=== PATIENT | female | born 1990 | race Caucasian/White ===

== ENCOUNTER 2022-03-12 08:02 | Day surgery (SDC) | payer SELFPAY ==
[2022-03-12] MEDS ORDERED: Dextrose 5%-Lactated Ringers 1,000 ML IV SCH (09:00)
[2022-03-12] MEDS ORDERED: fentaNYL 100 MCG/2 ML SDV ONE (09:39)
[2022-03-12] MEDS ORDERED: Propofol 200 MG/20 ML SDV ONE (09:39)
[2022-03-12] MEDS ORDERED: Midazolam 1 MG/ML 2 ML SDV ONE (09:39)
[2022-03-12 11:56] VITALS: BP 103/76; PULSE 71
== END 2022-03-12 11:56 | disposition home or self-care (01) ==
LOC: JP.SDS 08:02
PROVIDERS: ATTEND Surgery
DX: K29.70 Gastritis, unspecified, without bleeding (principal); K44.9 Diaphragmatic hernia without obstruction or gangrene; Z87.19 Personal history of other diseases of the digestive system; Z79.899 Other long term (current) drug therapy; Z79.83 Long term (current) use of bisphosphonates
CPT/HCPCS: 81025; 87081; J2250; J2704; J3010; J7121